=== PATIENT | male | born 1940 | race Caucasian/White ===

== ENCOUNTER → 2022-04-29 10:48 | Outpatient (CLI) | payer MEDICARE, SELFPAY ==
[2022-04-29 10:53] LABS: Microscopic, Urine URINE MICROSCOPIC (MICROSCOPIC)
[2022-04-29 14:24] LABS: Basophils # 0.1 K/mm3 (0-0.2); Basophils % 0.6 % (0.1-2.0); Eosinophils # 0.6 K/mm3 (0.0-0.4); Eosinophils % 7.2 % (0.1-12.0); Hematocrit 42.7 % (42.0-52.0); Hemoglobin 13.6 g/dL (14.1-18.0); Lymphocytes # 0.8 K/mm3 (0.7-4.5); Lymphocytes % 10.3 % (10-50); Mean Corpuscular HGB Conc 31.7 g/dL (31.8-35.4); Mean Corpuscular Hemoglobin 29.3 pg (27.0-31.2); Mean Corpuscular Volume 92.5 fl (80-94); Mean Platelet Volume 10.8 fl (7.4-10.4); Monocytes # 0.6 K/mm3 (0.1-1.0); Monocytes % 7.7 % (1.7-9.3); Neutrophils % 74.2 % (37.0-80.0); Platelet Count 171 K/mm3 (142-424); Red Blood Count 4.62 M/mm3 (4.60-6.20); Red Cell Distribution Width 15.7 % (11.5-17.5)
[2022-04-29 14:27] LABS: Appearance,Urine CLEAR (Clear); Bilirubin,Urine Negative (Negative); Blood, Urine 1+ (Negative); Color,Urine YELLOW (Yellow); Glucose,Urine (UA) Negative (Negative); Ketones,Urine Negative (Negative); Leukocyte Esterase,Urine TRACE (Negative); Nitrate,Urine Negative (Negative); Protein,Urine 3+ (Negative); Urobilinogen,Urine 0.2 EU/dl (0.2)
[2022-04-29 14:31] LABS: Albumin Level 3.3 g/dl (3.5-5.0); Anion Gap 8.7 mEq/L (5-15); Blood Urea Nitrogen 23 mg/dl (9-20); Calcium 8.9 mg/dl (8.4-10.2); Carbon Dioxide 29 mmol/L (22.0-30.0); Chloride 108 mmol/L (98-107); Estimated Glomerular Filt Rate 34 ml/min (>60); GFR (African American) 41 ML/MIN (>60); Glucose 108 mg/dl (74-100); Phosphorous 3.7 mg/dl (2.5-4.5); Potassium 3.7 mmoL/L (3.5-5.1); Sodium 142 mmol/L (136-145); Uric Acid 5.6 mg/dl (3.5-8.5)
[2022-04-29 14:40] LABS: Intact Parathyroid Hormone 118.6 pg/mL (7.5-53.5)
[2022-04-29 14:43] LABS: Creatinine,Urine Random 114 mg/dL (Not Estab.)
[2022-04-29 14:50] LABS: Bacteria,Urine Trace /lpf; Transitional Epi Cells,Urine OCC #/lpf (0-3)
[2022-04-29 14:53] LABS: 25-OH Vitamin D, Total 47.1 ng/mL (30-100)
== END ==
PROVIDERS: Internal Medicine
DX: C61 Malignant neoplasm of prostate (principal); C67.9 Malignant neoplasm of bladder, unspecified; N13.9 Obstructive and reflux uropathy, unspecified; N18.32 Chronic kidney disease, stage 3b; I12.9 Hypertensive chronic kidney disease with stage 1 through stage 4 chronic kidney disease, or unspecified chronic kidney disease; E55.9 Vitamin D deficiency, unspecified
CPT/HCPCS: 36415; 80069; 81001; 82306; 82570; 83970; 84155; 84550; 85025

== ENCOUNTER 2022-05-20 11:00 | Outpatient (RCR) | payer MEDICARE, SELFPAY | END 2022-06-02 16:44 | disposition home or self-care (01) | LOC: PT.CARL 11:00 | PROVIDERS: PCP Urology; Visit Provider Orthopaedic Surgery | DX: M67.952 Unspecified disorder of synovium and tendon, left thigh (principal) | CPT/HCPCS: 20561; 97110; 97112; 97140; 97163; 97164; 97530 ==

== ENCOUNTER → 2022-05-27 10:47 | Outpatient (CLI) | payer MEDICARE, SELFPAY ==
[2022-05-27 14:37] LABS: Albumin Level 3.6 g/dl (3.5-5.0); Anion Gap 8.9 mEq/L (5-15); Blood Urea Nitrogen 26 mg/dl (9-20); Calcium 9.1 mg/dl (8.4-10.2); Carbon Dioxide 28 mmol/L (22.0-30.0); Chloride 107 mmol/L (98-107); Estimated Glomerular Filt Rate 32 ml/min (>60); GFR (African American) 39 ML/MIN (>60); Glucose 107 mg/dl (74-100); Phosphorous 3.5 mg/dl (2.5-4.5); Potassium 3.9 mmoL/L (3.5-5.1); Sodium 140 mmol/L (136-145)
[2022-05-29 11:07] LABS: Microscopic, Urine URINE MICROSCOPIC (MICROSCOPIC)
[2022-05-29 15:21] LABS: Appearance,Urine CLEAR (Clear); Bilirubin,Urine Negative (Negative); Blood, Urine Negative (Negative); Color,Urine YELLOW (Yellow); Glucose,Urine (UA) Negative (Negative); Ketones,Urine Negative (Negative); Leukocyte Esterase,Urine Negative (Negative); Nitrate,Urine Negative (Negative); Protein,Urine 2+ (Negative); Specific Gravity, Urine 1.015 (1.005-1.030); Urobilinogen,Urine 0.2 EU/dl (0.2)
[2022-05-29 15:40] LABS: RBC,Urine Occasional #/hpf (0-3)
[2022-05-29 15:43] LABS: Creatinine,Urine Random 113 mg/dL (Not Estab.)
== END ==
PROVIDERS: Nurse Practitioner Family; PCP Emergency Medicine; Visit Provider Internal Medicine
DX: N18.32 Chronic kidney disease, stage 3b (principal)
CPT/HCPCS: 36415; 80069; 81001; 82570; 84155

== ENCOUNTER 2024-06-28 10:07 | Outpatient (CLI) | payer MEDICARE, SELFPAY ==
[2024-06-28 10:19] LABS: Microscopic, Urine URINE MICROSCOPIC (MICROSCOPIC)
[2024-06-28 10:52] LABS: Appearance,Urine CLOUDY (Clear); Bilirubin,Urine Negative (Negative); Blood, Urine Negative (Negative); Color,Urine YELLOW (Yellow); Glucose,Urine (UA) Negative (Negative); Ketones,Urine Negative (Negative); Leukocyte Esterase,Urine 3+ (Negative); Nitrate,Urine Negative (Negative); Protein,Urine 2+ (Negative); Specific Gravity, Urine 1.015 (1.005-1.030); Urobilinogen,Urine 0.2 EU/dl (0.2)
[2024-06-28 10:54] LABS: Basophils % 0.4 % (0.1-2.0); Eosinophils # 0.1 K/mm3 (0.0-0.4); Eosinophils % 1.1 % (0.1-12.0); Hemoglobin 11.8 g/dL (14.1-18.0); Lymphocytes # 0.7 K/mm3 (0.7-4.5); Lymphocytes % 10.1 % (10-50); Mean Corpuscular HGB Conc 30.4 g/dL (31.8-35.4); Mean Corpuscular Hemoglobin 28.9 pg (27.0-31.2); Mean Corpuscular Volume 95.2 fl (80-94); Mean Platelet Volume 9.5 fl (7.4-10.4); Monocytes # 0.4 K/mm3 (0.1-1.0); Monocytes % 5.5 % (1.7-9.3); Neutrophils # 5.8 K/mm3 (1.8-7.8); Neutrophils % 82.9 % (37.0-80.0); Platelet Count 189 K/mm3 (142-424); Red Cell Distribution Width 14.4 % (11.5-17.5); White Blood Count 6.9 K/mm3 (4.8-10.8)
[2024-06-28 10:58] LABS: Creatinine,Urine Random 74 mg/dL (Not Estab.)
[2024-06-28 11:01] LABS: Bacteria,Urine 2+ /lpf; WBC,Urine TNTC #/hpf (0-3)
[2024-06-28 11:19] LABS: Albumin Level 3.2 g/dl (3.5-5.0); Anion Gap 7.8 mEq/L (5-15); Blood Urea Nitrogen 34 mg/dl (9-20); Carbon Dioxide 29 mmol/L (22.0-30.0); Chloride 111 mmol/L (98-107); Estimated Glomerular Filt Rate 29 ml/min (>60); GFR (African American) 35 ML/MIN (>60); Glucose 85 mg/dl (74-100); Iron 54 ug/dL (49-181); Phosphorous 3.2 mg/dl (2.5-4.5); Potassium 3.8 mmoL/L (3.5-5.1); Sodium 144 mmol/L (136-145); Uric Acid 6.7 mg/dl (3.5-8.5)
[2024-06-28 11:28] LABS: Total Iron Binding Capacity 257 ug/dL (261-462)
[2024-06-28 11:32] LABS: Intact Parathyroid Hormone 38.9 pg/mL (7.5-53.5)
[2024-06-28 11:36] LABS: 25-OH Vitamin D, Total 92.9 ng/mL (30-100)
[2024-06-28 11:55] LABS: Ferritin 96.1 ng/ml (17.9-464)
== END 2024-06-28 23:59 | disposition home or self-care (01) ==
PROVIDERS: Student in an Organized Health Care Education/Training Program; Visit Provider Internal Medicine
DX: N18.4 Chronic kidney disease, stage 4 (severe) (principal); I10 Essential (primary) hypertension; E55.9 Vitamin D deficiency, unspecified; Z79.899 Other long term (current) drug therapy
CPT/HCPCS: 36415; 80069; 81001; 82306; 82570; 82728; 83540; 83550; 83970; 84156; 84550; 85025; 87086; 87088